=== PATIENT | male | born 1975 | race American Indian/Alaskan Native ===

== ENCOUNTER 2018-06-23 06:52 | Emergency (ER) | payer SELFPAY ==
[2018-06-23] MEDS ORDERED: TORADOL IM ONE (08:47)
--- NOTE | 2018-06-23 08:48 | Emergency Department Report ---
ED Lower Extremity HPI - General Chief Complaint: Extremity Injury, Lower Stated Complaint: RT HIP/LEG PAIN Time Seen by Provider: 06/23/18 08:15 Source: patient Mode of arrival: Ambulatory Limitations: No Limitations - History of Present Illness Initial Comments: Patient reports that right hip swelling and pain. He states it is radiating down his right leg that started 4 days. He denies any trauma. He said his job is very physical where he has to do a lot of lifting. He said he has back pain from time to time. Pain is 8 out of 10 and worse with movement. Denies any urinary burning frequency or urgency. Denies any numbness or tingling to extremities. Right MD Complaint: other (patient reports pain to his hip radiated down to his leg.) Onset/Timin -: days(s) Injury: Hip: Right, Leg: Right Type of Injury: unknown Severity: severe Severity scale (0 -10): 8 Improves With: rest Worsens With: movement Context: other (occasional back pain) Associated Symptoms: denies: snap/pop sensation, swelling, numbness, tingling, unable to bear weight, able to partially bear weight, ambulatory Treatments Prior to Arrival: other (none) - Related Data Previous Rx's Medication Instructions Recorded Last Taken Type Ibuprofen [Motrin 800 MG tab] 800 mg PO TID PRN #20 tablet 12/22/14 Unknown Rx Prednisone [Prednisone 10 mg 10 mg PO .TAPER #1 tab.ds.pk 12/22/14 Unknown Rx (6-Day Pack, 21 Tabs)] Ibuprofen [Motrin] 600 mg PO Q8H PRN #12 tablet 06/23/18 Unknown Rx Allergies Allergy/AdvReac Type Severity Reaction Status Date / Time No Known Allergies Allergy Verified 12/22/14 07:46 ED Review of Systems ROS: Stated complaint: RT HIP/LEG PAIN Other details as noted in HPI Constitutional: denies: chills, fever Eyes: denies: eye pain, vision change ENT: denies: ear pain, throat pain, congestion Respiratory: denies: cough, shortness of breath, SOB with exertion, SOB at rest , stridor, wheezing Cardiovascular: denies: chest pain, palpitations Gastrointestinal: denies: abdominal pain, nausea, vomiting, diarrhea Genitourinary: denies: urgency, dysuria Musculoskeletal: arthralgia. denies: back pain, joint swelling Skin: denies: rash, lesions Neurological: denies: headache, weakness, numbness, paresthesias, confusion, abnormal gait, vertigo ED Past Medical Hx - Past Medical History Previous Medical History?: No - Surgical History Past Surgical History?: No - Family History Family history: hypertension - Social History Smoking Status: Current Every Day Smoker Substance Use Type: None - Medications Home Medications: Home Medications Medication Instructions Recorded Confirmed Last Taken Type Ibuprofen [Motrin 800 MG tab] 800 mg PO TID PRN #20 tablet 12/22/14 Unknown Rx Prednisone [Prednisone 10 mg 10 mg PO .TAPER #1 tab.ds.pk 12/22/14 Unknown Rx (6-Day Pack, 21 Tabs)] Ibuprofen [Motrin] 600 mg PO Q8H PRN #12 tablet 06/23/18 Unknown Rx ED Physical Exam - General Limitations: No Limitations General appearance: alert, in no apparent distress - Head Head exam: Present: atraumatic, normocephalic, normal inspection, other (normal exam) - Eye Eye exam: Present: normal appearance, PERRL, EOMI. Absent: nystagmus Pupils: Present: normal accommodation - ENT ENT exam: Present: normal exam, normal orophraynx, mucous membranes moist, TM's normal bilaterally, normal external ear exam - Neck Neck exam: Present: normal inspection, full ROM, other. Absent: tenderness, lymphadenopathy - Respiratory Respiratory exam: Present: normal lung sounds bilaterally. Absent: respiratory distress, chest wall tenderness - Cardiovascular Cardiovascular Exam: Present: regular rate, normal rhythm, normal heart sounds. Absent: systolic murmur, diastolic murmur - GI/Abdominal GI/Abdominal exam: Present: soft, normal bowel sounds. Absent: distended, tenderness, guarding, rebound, rigid, organomegaly, mass - Extremities Exam Extremities exam: Present: normal inspection, full ROM, normal capillary refill , other (No cce. + 2 pulses in all extremities, no neurovascular compromise). Absent: tenderness, pedal edema, joint swelling, calf tenderness - Back Exam Back exam: Present: normal inspection, full ROM, other (ambulates without any difficulties). Absent: tenderness, CVA tenderness (R), CVA tenderness (L), muscle spasm, paraspinal tenderness, vertebral tenderness, rash noted - Neurological Exam Neurological exam: Present: alert, oriented X3, normal gait, reflexes normal. Absent: motor sensory deficit - Expanded Neurological Exam Expanded Neurological exam: Absent: innattentive, memory loss-remote event, memory loss- recent event, ataxia, receptive aphasia Patient oriented to: Present: person, place, time Speech: Present: fluid speech Cranial nerves: EOM's Intact: Normal, Gag Reflex: Normal, Tongue Deviation: Normal, Nystagmus: Normal, Facial Sensation: Normal Cerebellar function: Romberg: Normal Upper motor neuron: Pronator Drift: Normal, Sensory Extinction: Normal Sensory exam: Upper Extremity Light Touch: Normal, Upper Extremity Temperature: Normal, Lower Extremity Light Touch: Normal, Lower Extremity Temperature: Normal , LE 2 Point Discrimination: Normal Motor strength exam: RUE: 5, LUE: 5, RLE: 5, LLE: 5 Best Eye Response ([place]): (4) open spontaneously Best Motor Response (Cla[place]): (6) obeys commands Best Verbal Response ([place]): (5) oriented [place] Total: 15 - Psychiatric Psychiatric exam: Present: normal affect, normal mood - Skin Skin exam: Present: warm, dry, intact, normal color. Absent: rash ED Course Vital Signs 06/23/18 06/23/18 07:20 10:20 Temperature 99.4 F Pulse Rate 75 71 Respiratory 18 16 Rate Blood Pressure 145/71 Blood Pressure 140/70 [Left] O2 Sat by Pulse 99 99 Oximetry - Reevaluation(s) Reevaluation #1: 06/23/18 09:31 This received Toradol 60 mg IM for pain with positive relief. ED Lower Extremity MDM - Radiology Data Radiology results: report reviewed X-ray of right hip and lumbar sacral spine dictated by radiologist report reviewed by myself. Patient: BRYAN SANDOVAL MR#: [id number] : 1975 Acct:[id number] Age/Sex: 42 / M ADM Date: 06/23/18 Loc: ED Attending Dr: Ordering Physician: ANAIS MITCHELL Date of Service: 06/23/18 Procedure(s): XR spine lumbosacral 2-3V Accession Number(s): [id number] cc: ANAIS MITCHELL Fluoro Time In Minutes: LUMBOSACRAL SPINE, 3 VIEWS: History: Back pain Findings: Early disc space narrowing and facet arthropathy is identified at L5-S1. The remaining levels are within normal limits. No fracture, malalignment or bone lesion is identified. Impression: Early degenerative changes at L5-S1. Transcribed By: TTR Dictated By: JULIET ONEILL JR, MD Electronically Authenticated By: JULIET ONEILL JR, MD Signed Date/Time: 06/23/18936 DD/ 5 TD/TT: 06/23/18936 Findings [facility] [address] [place] [address] XRay Report Signed Patient: BRYAN SANDOVAL MR#: [id number] : 1975 Acct:[id number] Age/Sex: 42 / M ADM Date: 06/23/18 Loc: ED Attending Dr: Ordering Physician: ANAIS MITCHELL Date of Service: 06/23/18 Procedure(s): XR hip 2-3V RT Accession Number(s): [id number] cc: ANAIS MITCHELL Fluoro Time In Minutes: RIGHT HIP, 2 views: History: Right hip pain and swelling due to injury. The bony architecture is intact without evidence of fracture or dislocation. No significant soft tissue abnormality is seen. IMPRESSION: Normal right hip. Transcribed By: TTR Dictated By: JULIET ONEILL JR, MD Electronically Authenticated By: JULIET ONEILL JR, MD Signed Date/Time: 06/23/18936 DD/ 6 TD/TT: 06/23/18936 - Medical Decision Making This is a 42-year-old male here with complaint of right hip pain for 3 days. He is here to be evaluated. Diagnostics: X-ray of right hip and lumbar spine reveal no acute fracture, dislocation or subluxation but patient with degenerative disc disease and L- spine. Please see report for details. Assessment/plan 1: Arthralgia right hip-normal x-ray. Patient given Toradol 60 mg IM which revealed this pain. 2: Degenerative disease lumbar spine with right lower extremity radiculopathy- better with medication and we will refer to orthopedic doctor. I discussed the patient is diagnosis, treatment plan and indication. He voiced understanding of surgery instructions and need to follow up with follow up with primary care and orthopedic doctor in 2-3 days. Patient does not have access to primary care so refer him to [facility]. Discharge home with his family in stable condition with prescription for Motrin. - Differential Diagnosis FX, dislocation, subluxation, degenerative disc disease, MSK pain Critical care attestation.: If time is entered above; I have spent that time in minutes in the direct care of this critically ill patient, excluding procedure time. ED Disposition Clinical Impression: Lumbar radiculopathy, right, Right hip pain Disposition: TO HOME OR SELFCARE Is pt being admited?: No Does the pt Need Aspirin: No Condition: Stable Instructions: Lumbar Radiculopathy (ED), Arthralgia (ED) Additional Instructions: Follow-up with orthopedic doctor and [facility] as discussed Prescriptions: Ibuprofen [Motrin] 600 mg PO Q8H PRN #12 tablet PRN Reason: Pain Referrals: KAMRYN ESCOBEDO MD [Staff Physician] - 2-3 Days [facility] [Outside] - 2-3 Days Forms: Work/School Release Form(ED)
--- NOTE | 2018-06-23 09:38 | XRay Report ---
LUMBOSACRAL SPINE, 3 VIEWS: History: Back pain Findings: Early disc space narrowing and facet arthropathy is identified at L5-S1. The remaining levels are within normal limits. No fracture, malalignment or bone lesion is identified. Impression: Early degenerative changes at L5-S1.
--- NOTE | 2018-06-23 09:39 | XRay Report ---
RIGHT HIP, 2 views: History: Right hip pain and swelling due to injury. The bony architecture is intact without evidence of fracture or dislocation. No significant soft tissue abnormality is seen. IMPRESSION: Normal right hip.
[2018-06-23 10:21] VITALS: BP 140/70
== END 2018-06-23 10:20 | disposition home or self-care (01) ==
LOC: ED 06:52
DX: M54.16 Radiculopathy, lumbar region (principal); M25.551 Pain in right hip; I10 Essential (primary) hypertension; F17.200 Nicotine dependence, unspecified, uncomplicated
CPT/HCPCS: 72100; 73502; 96372; 99283; J1885